=== PATIENT | female | born 1935 | race Two or more races ===

== ENCOUNTER 2017-03-03 19:46 | Inpatient (IN) | payer MEDICARE, OTHER ==
[~2017-03-03] VITALS: Ht 167.6 cm; Wt 68.0 kg
[~2017-03-03 19:46] MED LIST: AMPICILLIN SOD GT; ASPIRIN81 MG ORAL; BACTRIM DS TAB1 EAC1 ORAL; CARDIZEM30 M1 PO; GERI-KOT8.6 MG PO; METFORMIN HCL500 M1 ORAL; MULTI-DELYN237 ML ORAL; PROTONIX40 M2 PO; ROBAXIN500 MG PO; ULTRAM50 MG ORAL
--- NOTE | 2017-03-03 19:52 | Emergency Room Report ---
History of Present Illness General Chief Complaint: Dyspnea/Respdistress Source: EMS Present Illness HPI Patient is an 81-year-old female who presented after increased difficulty breathing. Patient was noted to have prior history of lung disease. She was sent in by her family after having increased trouble breathing. 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 She reportedly had increased productive cough. Patient was noted to have previous. 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 Review of Systems All Other Systems: limited - by mental status Physical Exam Sp02 EP Interpretation: reviewed, normal General Appearance: alert, moderate distress, Chronically Ill Head: atraumatic ENT: normal ENT inspection, hearing grossly normal, normal voice Neck: normal inspection, full range of motion, supple, no bony tend Respiratory: normal inspection, normal breath sounds, rhonchi Cardiovascular #1: regular rate, rhythm, no edema Gastrointestinal: normal inspection, normal bowel sounds, non tender, soft, no guarding, no hernia Genitourinary: no CVA tenderness Musculoskeletal: normal inspection, back normal, normal range of motion Neurologic: responsive, speech normal, motor weakness - left upper extremity Psychiatric: normal inspection, judgement/insight normal, mood/affect normal Skin: normal inspection, normal color, no rash Medical Decision Making Diagnostic Impression: Primary Impression: Sepsis Additional Impressions: UTI (lower urinary tract infection) CHF (congestive heart failure) ER Course Patient presented for shortness of breath. Differential included but was not limited to anemia, pneumonia, pneumothorax, myocardial infarction, pericardial effusion, congestive heart failure, acidosis. Because of complexity of patient' s case laboratory testing and imaging studies were ordered.Laboratory testing showed evidence of elevated BNP as well as hyperkalemia. A chest x-ray one view interpreted by me showed right middle lobe infiltrate. There is no evident effusion. Dr. Mejia was contacted for inpatient management due to complexity of medical condition. Patient his primary care physician Labs Test 03/03/17 19:56 White Blood Count 7.3 K/UL (4.8-10.8) Red Blood Count 4.58 M/UL (4.20-5.40) Hemoglobin 13.3 G/DL (12.0-16.0) Hematocrit 45.1 % (37.0-47.0) Mean Corpuscular Volume 98 FL (80-99) Mean Corpuscular Hemoglobin 29.1 PG (27.0-31.0) Mean Corpuscular Hemoglobin Concent 29.6 G/DL (32.0-36.0) Red Cell Distribution Width 13.7 % (11.6-14.8) Platelet Count 186 K/UL (150-450) Mean Platelet Volume 6.2 FL (6.5-10.1) Neutrophils (%) (Auto) 67.3 % (45.0-75.0) Lymphocytes (%) (Auto) 19.7 % (20.0-45.0) Monocytes (%) (Auto) 8.4 % (1.0-10.0) Eosinophils (%) (Auto) 3.3 % (0.0-3.0) Basophils (%) (Auto) 1.3 % (0.0-2.0) Sodium Level 140 MMOL/L (136-145) Potassium Level 5.0 MMOL/L (3.5-5.1) Chloride Level 107 MMOL/L (98-107) Carbon Dioxide Level 30 MMOL/L (21-32) Anion Gap 3 (5-15) Blood Urea Nitrogen 24 mg/dL (7-18) Creatinine 0.7 MG/DL (0.55-1.30) Estimat Glomerular Filtration Rate mL/min (>60) Glucose Level 98 MG/DL (74-106) Lactic Acid Level 0.80 mmol/L (0.66-2.22) Calcium Level 9.3 MG/DL (8.5-10.1) Total Bilirubin 0.4 MG/DL (0.2-1.0) Aspartate Amino Transf (AST/SGOT) 19 U/L (15-37) Alanine Aminotransferase (ALT/SGPT) 17 U/L (12-78) Alkaline Phosphatase 58 U/L (46-116) Troponin I 0.024 ng/mL (0.000-0.056) Pro-B-Type Natriuretic Peptide 1134 (0-125) Total Protein 7.0 G/DL (6.4-8.2) Albumin 3.4 G/DL (3.4-5.0) Globulin 3.6 g/dL Albumin/Globulin Ratio 0.9 (1.0-2.7) EKG Diagnostic Results Rate: normal Rhythm: NSR ST Segments: no acute changes Status: unchanged Disposition: ADMITTED INPATIENT Condition: Serious Brandon Damon Mar 03, 2017 19:52
[2017-03-03 20:00] VITALS: BP 156/133
[2017-03-03] MEDS ORDERED: Albuterol ud Inhalation HHN ONE (20:00)
[2017-03-03 20:25] LABS: BASOPHILS % (AUTO) 1.3 % (0.0-2.0); EOSINOPHILS % (AUTO) 3.3 % (0.0-3.0); LYMPHOCYTES % (AUTO) 19.7 % (20.0-45.0); MEAN CORPUSCULAR HEMOGLOBIN 29.1 PG (27.0-31.0); MEAN CORPUSCULAR HGB CONC 29.6 G/DL (32.0-36.0); MEAN CORPUSCULAR VOLUME 98 FL (80-99); MEAN PLATELET VOLUME 6.2 FL (6.5-10.1); MONOCYTES % (AUTO) 8.4 % (1.0-10.0); NEUTROPHILS % (AUTO) 67.3 % (45.0-75.0); PLATELET COUNT 186 K/UL (150-450); RED BLOOD COUNT 4.58 M/UL (4.20-5.40); RED CELL DISTRIBUTION WIDTH 13.7 % (11.6-14.8); WHITE BLOOD COUNT 7.3 K/UL (4.8-10.8)
[2017-03-03 21:09] LABS: ALANINE AMINOTRANSFERASE 17 U/L (12-78); ALBUMIN/GLOBULIN RATIO 0.9 (1.0-2.7); ANION GAP 3 (5-15); ASPARTATE AMINO TRANSFERASE 19 U/L (15-37); CALCIUM 9.3 MG/DL (8.5-10.1); CARBON DIOXIDE 30 MMOL/L (21-32); CHLORIDE 107 MMOL/L (98-107); CREATININE 0.7 MG/DL (0.55-1.30); SODIUM 140 MMOL/L (136-145)
[2017-03-03] MEDS ORDERED: LORazepam 0.5mg tab ORAL ONE (21:15)
[2017-03-03 22:07] VITALS: BP 130/71
[2017-03-03] MEDS ORDERED: Nitroglycerin Subl 0.4mg tab SL PRN (22:30)
[2017-03-03] MEDS ORDERED: Promethazine/Codeine 5ml UD ORAL PRN (22:30)
[2017-03-03] MEDS ORDERED: Miralax 17gm pkt ORAL PRN (22:30)
[2017-03-03] MEDS ORDERED: Mylanta II UD 30ml ORAL PRN (22:30)
[2017-03-03] MEDS ORDERED: Albuterol/Ipratropium 3ml neb HHN PRN (22:30)
[2017-03-04] VITALS (7 sets, daily range): BP systolic 109–139; BP diastolic 63–77
[2017-03-04] MEDS ORDERED: UNOBMED (00:42)
[2017-03-04] MEDS ORDERED: Vancomycin 1gm inj IVPB ONE (02:09)
[2017-03-04] MEDS: Vancomycin 1gm in D5W 275ml IVPB SCH ×2 (02:37→15:14)
[2017-03-04] MEDS ORDERED: dilTIAZem HCl 30mg tab ORAL SCH (06:00)
[2017-03-04] MEDS: NovoLOG Insulin Flexpen SUBQ SCH ×4 (06:30→21:00)
[2017-03-04] MEDS ORDERED: ALBUTEROL2.5 MG/3 M INH (06:52)
[2017-03-04 07:15] LABS: BASOPHILS % (AUTO) 1.1 % (0.0-2.0); EOSINOPHILS % (AUTO) 2.9 % (0.0-3.0); LYMPHOCYTES % (AUTO) 15.8 % (20.0-45.0); MEAN CORPUSCULAR HEMOGLOBIN 30.6 PG (27.0-31.0); MEAN CORPUSCULAR HGB CONC 31.6 G/DL (32.0-36.0); MEAN CORPUSCULAR VOLUME 97 FL (80-99); MEAN PLATELET VOLUME 6.1 FL (6.5-10.1); MONOCYTES % (AUTO) 12.3 % (1.0-10.0); NEUTROPHILS % (AUTO) 67.9 % (45.0-75.0); PLATELET COUNT 187 K/UL (150-450); RED CELL DISTRIBUTION WIDTH 13.5 % (11.6-14.8); WHITE BLOOD COUNT 8.2 K/UL (4.8-10.8)
[2017-03-04 08:17] LABS: ANION GAP 3 (5-15); CALCIUM 8.8 MG/DL (8.5-10.1); CARBON DIOXIDE 32 MMOL/L (21-32); CHLORIDE 106 MMOL/L (98-107); CREATININE 0.7 MG/DL (0.55-1.30); POTASSIUM 4.3 MMOL/L (3.5-5.1); SODIUM 140 MMOL/L (136-145)
[2017-03-04] MEDS: Heparin 5000 units/ml inj SUBQ SCH ×2 (08:40→21:24)
[2017-03-04] MEDS ORDERED: Cefepime HCl 1 GM in D5W 55 ML IV SCH (09:00)
--- NOTE | 2017-03-04 12:22 | Diagnostic Imaging Report ---
Indication: SOB Technique: One view of the chest Comparison: 10/16/2014 Findings: The heart is enlarged. Patient is slightly rotated to the left. Mild interstitial prominence likely reflects senescent changes. Previously demonstrated retrocardiac consolidation is no longer evident. There is some atelectasis of the left lateral lung base. There is a left shoulder hemiarthroplasty prosthesis Impression: No definite acute process. Findings as noted
--- NOTE | 2017-03-04 15:36 | History and Physical ---
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 She was sent in by her family after having increased trouble breathing. She reportedly had increased productive cough and received oral abx without any improvement. She was desaturating and admitted for respiratory failure. Allergies: Coded Allergies: No Known Allergies (Unverified , 10/11/14) Medication History Scheduled Pantoprazole Sodium (Protonix), 40 MG PO DAILY, (Reported) Sennosides (Gabi-Josh), 8.6 MG PO QHS, (Reported) Trimethoprim/Sulfamethoxazole 160/800* (Bactrim Ds Tablet*), 1 TAB ORAL TWICE A DAY, (Reported) Scheduled PRN Albuterol Sulfate* (Albuterol Sulfate Hhn*), 3 ML INH Q6H PRN for Shortness of Breath, (Reported) Miscellaneous Medications Unable to Obtain Medications (Unable To Obtain Meds), (Reported) Patient History Healthcare decision maker Resuscitation status Full Code Advanced Directive on File No Past Medical/Surgical History Past Medical/Surgical History: (1) Cerebrovascular accident (CVA) (2) Dementia (3) Hypoalbuminemia Review of Systems All Other Systems: negative except mentioned in HPI Physical Exam General Appearance: WD/WN, no apparent distress Lines, tubes and drains: peripheral, central line HEENT: normocephalic, anicteric Neck: non-tender, normal alignment Cardiovascular/Chest: normal peripheral pulses, normal rate Last 24 Hour Vital Signs Date Time Temp Pulse Resp B/P (MAP) Pulse Ox O2 Delivery O2 Flow Rate FiO2 03/04/17 11:52 97.3 89 20 138/63 94 Simple Mask 03/04/17 09:00 90 03/04/17 08:40 97.9 93 20 139/64 90 Nasal Cannula 3.0 03/04/17 06:00 85 130/75 03/04/17 04:00 97.2 92 20 130/70 92 Room Air 03/04/17 04:00 87 03/04/17 01:42 97.5 93 20 130/77 97 Room Air 03/04/17 00:50 100.2 100 25 109/73 93 Nasal Cannula 3.0 28 03/04/17 00:18 100.2 100 25 109/73 93 Nasal Cannula 3.0 28 03/03/17 22:07 100.2 102 29 130/71 92 Nasal Cannula 2.0 28 03/03/17 20:32 100.2 03/03/17 20:32 94 24 Nasal Cannula 2.0 28 03/03/17 20:12 94 24 100 Nasal Cannula 28 03/03/17 20:00 88 23 Nasal Cannula 2.0 28 03/03/17 20:00 99.0 89 22 156/133 94 Nasal Cannula 2.0 03/03/17 20:00 89 25 94 Nasal Cannula 28 03/03/17 19:40 99.0 92 21 91/53 93 Nasal Cannula 2.0 Intake and Output 03/04/17 03/05/17 19:00 07:00 # Voids 1 # Bowel Movements 1 Laboratory Tests Test 03/03/17 19:56 03/04/17 06:30 White Blood Count 7.3 K/UL (4.8-10.8) 8.2 K/UL (4.8-10.8) Red Blood Count 4.58 M/UL (4.20-5.40) 4.50 M/UL (4.20-5.40) Hemoglobin 13.3 G/DL (12.0-16.0) 13.8 G/DL (12.0-16.0) Hematocrit 45.1 % (37.0-47.0) 43.6 % (37.0-47.0) Mean Corpuscular Volume 98 FL (80-99) 97 FL (80-99) Mean Corpuscular Hemoglobin 29.1 PG (27.0-31.0) 30.6 PG (27.0-31.0) Mean Corpuscular Hemoglobin Concent 29.6 G/DL (32.0-36.0) L 31.6 G/DL (32.0-36.0) L Red Cell Distribution Width 13.7 % (11.6-14.8) 13.5 % (11.6-14.8) Platelet Count 186 K/UL (150-450) 187 K/UL (150-450) Mean Platelet Volume 6.2 FL (6.5-10.1) L 6.1 FL (6.5-10.1) L Neutrophils (%) (Auto) 67.3 % (45.0-75.0) 67.9 % (45.0-75.0) Lymphocytes (%) (Auto) 19.7 % (20.0-45.0) L 15.8 % (20.0-45.0) L Monocytes (%) (Auto) 8.4 % (1.0-10.0) 12.3 % (1.0-10.0) H Eosinophils (%) (Auto) 3.3 % (0.0-3.0) H 2.9 % (0.0-3.0) Basophils (%) (Auto) 1.3 % (0.0-2.0) 1.1 % (0.0-2.0) Sodium Level 140 MMOL/L (136-145) 140 MMOL/L (136-145) Potassium Level 5.0 MMOL/L (3.5-5.1) 4.3 MMOL/L (3.5-5.1) Chloride Level 107 MMOL/L (98-107) 106 MMOL/L (98-107) Carbon Dioxide Level 30 MMOL/L (21-32) 32 MMOL/L (21-32) Anion Gap 3 (5-15) L 3 (5-15) L Blood Urea Nitrogen 24 mg/dL (7-18) H 21 mg/dL (7-18) H Creatinine 0.7 MG/DL (0.55-1.30) 0.7 MG/DL (0.55-1.30) Estimat Glomerular Filtration Rate mL/min (>60) mL/min (>60) Glucose Level 98 MG/DL (74-106) 90 MG/DL (74-106) Lactic Acid Level 0.80 mmol/L (0.66-2.22) Calcium Level 9.3 MG/DL (8.5-10.1) 8.8 MG/DL (8.5-10.1) Total Bilirubin 0.4 MG/DL (0.2-1.0) Aspartate Amino Transf (AST/SGOT) 19 U/L (15-37) Alanine Aminotransferase (ALT/SGPT) 17 U/L (12-78) Alkaline Phosphatase 58 U/L (46-116) Troponin I 0.024 ng/mL (0.000-0.056) Pro-B-Type Natriuretic Peptide 1134 (0-125) H Total Protein 7.0 G/DL (6.4-8.2) Albumin 3.4 G/DL (3.4-5.0) 3.1 G/DL (3.4-5.0) L Globulin 3.6 g/dL Albumin/Globulin Ratio 0.9 (1.0-2.7) L Phosphorus Level 4.0 MG/DL (2.5-4.9) Height (Feet): 5 Height (Inches): 6.00 Weight (Pounds): 150 Medications Current Medications Medications (Trade) Dose Ordered Sig/Freeman Route PRN Reason Start Time Stop Time Status Last Admin Dose Admin Acetaminophen (Tylenol) 650 mg Q4H PRN ORAL fever 03/03/17 22:30 04/02/17 22:29 Al Hydroxide/Mg Hydroxide (Mylanta II) 30 ml Q6H PRN ORAL dyspepsia 03/03/17 22:30 04/02/17 22:29 Albuterol/ Ipratropium (DuoNeb 0.5-3(2.5)mg/3ml) 3 ml EVERY 4 HOURS PRN HHN Shortness of Breath 03/03/17 22:30 03/08/17 22:29 Cefepime HCl 1 gm/ Dextrose 55 ml @ 110 mls/hr EVERY 12 HOURS IV 03/04/17 09:00 03/11/17 08:59 03/04/17 08:33 Dextrose (Dextrose 50%) STAT PRN IV Hypoglycemia 03/03/17 22:30 04/02/17 22:29 Heparin Sodium (Porcine) (Heparin 5000 units/ml) 5,000 units EVERY 12 HOURS SUBQ 03/04/17 09:00 04/03/17 08:59 03/04/17 08:40 Insulin Aspart (NovoLOG) BEFORE MEALS AND HS SUBQ 03/04/17 06:30 04/03/17 06:29 Nitroglycerin (Ntg) 0.4 mg Q5M PRN SL Prn Chest Pain 03/03/17 22:30 04/02/17 22:29 Ondansetron HCl (Zofran) 4 mg Q6H PRN IVP Nausea & Vomiting 03/03/17 22:30 04/02/17 22:29 Polyethylene Glycol (Miralax) 17 gm DAILYPRN PRN ORAL Constipation 03/03/17 22:30 04/02/17 22:29 Promethazine HCl/ Codeine (Phenergan with Codeine) 5 ml Q4H PRN ORAL For Cough 03/03/17 22:30 04/02/17 22:29 Temazepam (Restoril) 15 mg HSPRN PRN ORAL Insomnia 03/03/17 22:30 03/10/17 22:29 Vancomycin HCl (Vanco rx to dose) 1 ea DAILY PRN MISC Per rx protocol 03/03/17 22:30 04/02/17 22:29 Vancomycin HCl 1 gm/Dextrose 275 ml @ 183.708 mls/hr Q12H IVPB 03/04/17 01:00 03/09/17 00:59 03/04/17 15:14 Assessment/Plan Problem List: (1) Respiratory distress ICD Codes: R06.00 - Dyspnea, unspecified SNOMED: 389667577 (2) Dyspnea ICD Codes: R06.00 - Dyspnea, unspecified SNOMED: 801165116 (3) UTI (lower urinary tract infection) ICD Codes: N39.0 - Urinary tract infection, site not specified SNOMED: 9134336 (4) Sepsis ICD Codes: A41.9 - Sepsis, unspecified organism SNOMED: 21590175 Assessment/Plan iv abx check cultures respiratory treatment titrate fio2 aspiration precaution swallow study. DOMINIK CROW Mar 04, 2017 15:36
--- NOTE | 2017-03-04 16:34 | Consultation ---
History of Present Illness General Date patient seen: Mar 04, 2017 Time patient seen: 17:37 Chief Complaint: Dyspnea/Respdistress Reason for Consultation: low grade fever Present Illness HPI 81 y/o F with hx of HTN, COPD, DM2, cardiac arrest, CVA, with left side weakness and left sdie facial droop, Dementia presented to ED on 03/03 with worsening SOB, fever and productive cough. NOticed to have low grade fever Tm 100.2, afebrile now in 12hrs. no leukocytosis. CXR neg for PNA Started on IV Vanco and Cefepime. Allergies: Coded Allergies: No Known Allergies (Unverified , 10/11/14) Medication History Scheduled Pantoprazole Sodium (Protonix), 40 MG PO DAILY, (Reported) Sennosides (Gabi-Josh), 8.6 MG PO QHS, (Reported) Trimethoprim/Sulfamethoxazole 160/800* (Bactrim Ds Tablet*), 1 TAB ORAL TWICE A DAY, (Reported) Scheduled PRN Albuterol Sulfate* (Albuterol Sulfate Hhn*), 3 ML INH Q6H PRN for Shortness of Breath, (Reported) Miscellaneous Medications Unable to Obtain Medications (Unable To Obtain Meds), (Reported) Patient History Healthcare decision maker Resuscitation status Full Code Advanced Directive on File No Patient History Narrative PMHx: as above SH:unable to obtain given dementia Fhx: non contributory Review of Systems ROS Narrative unable to obtain given dementia Physical Exam Physical Exam Narrative General Appearance: alert, non in distress, Chronically Ill HEENT: no oral lessions, PERRL Neck: supple Respiratory: normal inspection, normal breath sounds, CTA x2 Cardiovascular: regular rate, rhythm, no edema Gastrointestinal: normal inspection, normal bowel sounds, non tender, soft, no guarding, no hernia Musculoskeletal: normal inspection, back normal, normal range of motion Neurologic: responsive, speech normal, motor weakness - left upper extremity Skin: normal inspection, normal color, no rash Last 24 Hour Vital Signs Date Time Temp Pulse Resp B/P (MAP) Pulse Ox O2 Delivery O2 Flow Rate FiO2 03/04/17 16:00 97.1 92 20 134/71 90 Nasal Cannula 6.0 03/04/17 11:52 97.3 89 20 138/63 94 Simple Mask 03/04/17 09:00 90 03/04/17 08:40 97.9 93 20 139/64 90 Nasal Cannula 3.0 03/04/17 06:00 85 130/75 03/04/17 04:00 97.2 92 20 130/70 92 Room Air 03/04/17 04:00 87 03/04/17 01:42 97.5 93 20 130/77 97 Room Air 03/04/17 00:50 100.2 100 25 109/73 93 Nasal Cannula 3.0 28 03/04/17 00:18 100.2 100 25 109/73 93 Nasal Cannula 3.0 28 03/03/17 22:07 100.2 102 29 130/71 92 Nasal Cannula 2.0 28 03/03/17 20:32 100.2 03/03/17 20:32 94 24 Nasal Cannula 2.0 28 03/03/17 20:12 94 24 100 Nasal Cannula 28 03/03/17 20:00 88 23 Nasal Cannula 2.0 28 03/03/17 20:00 99.0 89 22 156/133 94 Nasal Cannula 2.0 03/03/17 20:00 89 25 94 Nasal Cannula 28 03/03/17 19:40 99.0 92 21 91/53 93 Nasal Cannula 2.0 Intake and Output 03/04/17 03/05/17 19:00 07:00 # Voids 1 # Bowel Movements 1 Laboratory Tests Test 03/03/17 19:56 03/04/17 06:30 White Blood Count 7.3 K/UL (4.8-10.8) 8.2 K/UL (4.8-10.8) Red Blood Count 4.58 M/UL (4.20-5.40) 4.50 M/UL (4.20-5.40) Hemoglobin 13.3 G/DL (12.0-16.0) 13.8 G/DL (12.0-16.0) Hematocrit 45.1 % (37.0-47.0) 43.6 % (37.0-47.0) Mean Corpuscular Volume 98 FL (80-99) 97 FL (80-99) Mean Corpuscular Hemoglobin 29.1 PG (27.0-31.0) 30.6 PG (27.0-31.0) Mean Corpuscular Hemoglobin Concent 29.6 G/DL (32.0-36.0) L 31.6 G/DL (32.0-36.0) L Red Cell Distribution Width 13.7 % (11.6-14.8) 13.5 % (11.6-14.8) Platelet Count 186 K/UL (150-450) 187 K/UL (150-450) Mean Platelet Volume 6.2 FL (6.5-10.1) L 6.1 FL (6.5-10.1) L Neutrophils (%) (Auto) 67.3 % (45.0-75.0) 67.9 % (45.0-75.0) Lymphocytes (%) (Auto) 19.7 % (20.0-45.0) L 15.8 % (20.0-45.0) L Monocytes (%) (Auto) 8.4 % (1.0-10.0) 12.3 % (1.0-10.0) H Eosinophils (%) (Auto) 3.3 % (0.0-3.0) H 2.9 % (0.0-3.0) Basophils (%) (Auto) 1.3 % (0.0-2.0) 1.1 % (0.0-2.0) Sodium Level 140 MMOL/L (136-145) 140 MMOL/L (136-145) Potassium Level 5.0 MMOL/L (3.5-5.1) 4.3 MMOL/L (3.5-5.1) Chloride Level 107 MMOL/L (98-107) 106 MMOL/L (98-107) Carbon Dioxide Level 30 MMOL/L (21-32) 32 MMOL/L (21-32) Anion Gap 3 (5-15) L 3 (5-15) L Blood Urea Nitrogen 24 mg/dL (7-18) H 21 mg/dL (7-18) H Creatinine 0.7 MG/DL (0.55-1.30) 0.7 MG/DL (0.55-1.30) Estimat Glomerular Filtration Rate mL/min (>60) mL/min (>60) Glucose Level 98 MG/DL (74-106) 90 MG/DL (74-106) Lactic Acid Level 0.80 mmol/L (0.66-2.22) Calcium Level 9.3 MG/DL (8.5-10.1) 8.8 MG/DL (8.5-10.1) Total Bilirubin 0.4 MG/DL (0.2-1.0) Aspartate Amino Transf (AST/SGOT) 19 U/L (15-37) Alanine Aminotransferase (ALT/SGPT) 17 U/L (12-78) Alkaline Phosphatase 58 U/L (46-116) Troponin I 0.024 ng/mL (0.000-0.056) Pro-B-Type Natriuretic Peptide 1134 (0-125) H Total Protein 7.0 G/DL (6.4-8.2) Albumin 3.4 G/DL (3.4-5.0) 3.1 G/DL (3.4-5.0) L Globulin 3.6 g/dL Albumin/Globulin Ratio 0.9 (1.0-2.7) L Phosphorus Level 4.0 MG/DL (2.5-4.9) reviewed Height (Feet): 5 Height (Inches): 6.00 Weight (Pounds): 150 Medications Current Medications Medications (Trade) Dose Ordered Sig/Freeman Route PRN Reason Start Time Stop Time Status Last Admin Dose Admin Acetaminophen (Tylenol) 650 mg Q4H PRN ORAL fever 03/03/17 22:30 04/02/17 22:29 Al Hydroxide/Mg Hydroxide (Mylanta II) 30 ml Q6H PRN ORAL dyspepsia 03/03/17 22:30 04/02/17 22:29 Albuterol/ Ipratropium (DuoNeb 0.5-3(2.5)mg/3ml) 3 ml EVERY 4 HOURS PRN HHN Shortness of Breath 03/03/17 22:30 03/08/17 22:29 Cefepime HCl 1 gm/ Dextrose 55 ml @ 110 mls/hr EVERY 12 HOURS IV 03/04/17 09:00 03/11/17 08:59 03/04/17 08:33 Dextrose (Dextrose 50%) STAT PRN IV Hypoglycemia 03/03/17 22:30 04/02/17 22:29 Heparin Sodium (Porcine) (Heparin 5000 units/ml) 5,000 units EVERY 12 HOURS SUBQ 03/04/17 09:00 04/03/17 08:59 03/04/17 08:40 Insulin Aspart (NovoLOG) BEFORE MEALS AND HS SUBQ 03/04/17 06:30 04/03/17 06:29 Nitroglycerin (Ntg) 0.4 mg Q5M PRN SL Prn Chest Pain 03/03/17 22:30 04/02/17 22:29 Ondansetron HCl (Zofran) 4 mg Q6H PRN IVP Nausea & Vomiting 03/03/17 22:30 04/02/17 22:29 Polyethylene Glycol (Miralax) 17 gm DAILYPRN PRN ORAL Constipation 03/03/17 22:30 04/02/17 22:29 Promethazine HCl/ Codeine (Phenergan with Codeine) 5 ml Q4H PRN ORAL For Cough 03/03/17 22:30 04/02/17 22:29 Temazepam (Restoril) 15 mg HSPRN PRN ORAL Insomnia 03/03/17 22:30 03/10/17 22:29 Vancomycin HCl (Vanco rx to dose) 1 ea DAILY PRN MISC Per rx protocol 03/03/17 22:30 04/02/17 22:29 Vancomycin HCl 1 gm/Dextrose 275 ml @ 183.708 mls/hr Q12H IVPB 03/04/17 01:00 03/09/17 00:59 03/04/17 15:14 Assessment/Plan Assessment/Plan Abx: IV Vancomcyin 03/03- IV Cefepime 03/04- Assesment: SOB- no PNA on CXR -CXR:. Mild interstitial prominence likely reflects senescent changes. Previously demonstrated retrocardiac consolidation is no longer evident. There is some atelectasis of the left lateral lung base. There is a left shoulder hemiarthroplasty prosthesis Low grade fever-? bronchitis- r/o UTI (cannot provide hx), r/o Flu, ?aspiration pneumonitis No leukocytosis HTN, COPD, DM2, cardiac arrest, CVA, with left side weakness and left sdie facial droop, Dementia Plan: -Transition IV Vanco and Cefepime to Ceftriaxone pending Repeat CXR and u/a -obtain u/a with reflex, CXR 2v savanna am, Influenza a/b test -f/u cx -Monitor CBC/BMP, temperatures Thank you for this consultation. Will continue to follow along with you. Discussed with Amanda Chaparro.D. Mar 04, 2017 16:34
[2017-03-04] MEDS ORDERED: Tubing IV Secondary IV ONE (17:40)
[2017-03-04] MEDS ORDERED: D5W 275ml ONE (17:40)
[2017-03-04] MEDS ORDERED: NS 275ml ONE (17:40)
[2017-03-04] MEDS ORDERED: cefTRIAXone 1 GM in D5W 55 ML IVPB SCH (21:00)
--- NOTE | 2017-03-04 22:58 | Cardiology Report ---
APPROVED REPORT EKG Measurement Heart [id number] Normal sinus rhythm Possible Left atrial enlargement Left axis deviation Left ventricular hypertrophy Cannot rule out Septal infarct, age undetermined Abnormal ECG
[2017-03-05] VITALS (7 sets, daily range): BP systolic 104–152; BP diastolic 51–91
[2017-03-05] MEDS: NovoLOG Insulin Flexpen SUBQ SCH ×4 (06:18→21:00)
[2017-03-05 08:07] LABS: APPEARANCE,URINE CLOUDY; KETONES,URINE 2+ (NEGATIVE); LEUKOCYTE ESTERASE ,URINE 2+ (NEGATIVE); NITRITE,URINE NEGATIVE (NEGATIVE); PH,URINE 6 (4.5-8.0); PROTEIN,URINE 3+ (NEGATIVE); UROBILINOGEN,URINE NORMAL MG/DL (0.0-1.0)
[2017-03-05 08:27] LABS: RBC,URINE TNTC /HPF (0 - 2); SQUAMOUS EPITHELIAL CELL,UR MODERATE /LPF (NONE/OCC); WBC,URINE 60-80 /HPF (0 - 2)
[2017-03-05 08:28] LABS: BACTERIA,URINE MODERATE /HPF
--- NOTE | 2017-03-05 08:44 | Wound Care Consultation ---
Wound Assessment Wound Assessment #1: Wound Number: 1 Wound Present on Admission: Yes New Wound: No Status Change of Wound: No Wound Location Body Site Modif: left Wound Location Body Site: buttocks Wound Type: pressure ulcer Dionne Test: Does not Dionne Pressure Ulcer Stage: Deep Tissue Injury Wound Thickness: Full Thickness Wound Length: 4.0 Wound Width: 4.0 Wound Depth: utd Percent of Wound Purple/Maroon: 100 Wound Drainage Amount: None Wound Drainage Odor: None/Absent Tissue Surrounding Wound: Intact Wound General Appearance: Reddened - purple Wound Assessment #2: Wound Number: 2 Wound Present on Admission: Yes New Wound: No Status Change of Wound: No Wound Location Body Site Modif: left, right Wound Location Body Site: axilla Wound Type: other - intertrigo Dionne Test: Does not Dionne Wound Thickness: Partial Thickness Percent of Wound Holliday/Red: 100 Wound Drainage Amount: None Wound Drainage Odor: None/Absent Tissue Surrounding Wound: Erythemic Wound General Appearance: Reddened Wound Assessment #3: Wound Number: 3 Wound Present on Admission: Yes New Wound: No Status Change of Wound: No Wound Location Body Site Modif: left, right Wound Location Body Site: breast fold Wound Type: other - intertrigo Dionne Test: Does not Dionne Wound Thickness: Partial Thickness Percent of Wound Holliday/Red: 100 Wound Drainage Amount: None Wound Drainage Odor: None/Absent Tissue Surrounding Wound: Intact Wound General Appearance: Reddened Wound Assessment #4: Wound Number: 4 Wound Present on Admission: Yes New Wound: No Status Change of Wound: No Wound Location Body Site: perineal area Wound Type: chemical burn Dionne Test: Does not Dionne Percent of Wound Holliday/Red: 100 Wound Drainage Amount: None Wound Drainage Odor: None/Absent Tissue Surrounding Wound: Erythemic Wound General Appearance: Reddened Wound Comment #1 Left buttock DTI pressure ulcer #2 Left and right armpit intertrigo #3 Left and right breast fold intertrigo #4 Chemical burn on perineal area Recommendation -Local wound care per protocol -Keep clean and dry -Turn and reposition -Optimize nutrition -Offload both heels -Heel protector on both heels -Assess and f/u accordingly for any changes CARLOS SIMMONS RN Mar 05, 2017 08:44
[2017-03-05] MEDS: Heparin 5000 units/ml inj SUBQ SCH ×2 (09:56→23:34)
[2017-03-05] MEDS ORDERED: Nystatin Powder 100,000 units/gm 15gm TOPIC SCH (13:00)
--- NOTE | 2017-03-05 14:18 | Diagnostic Imaging Report ---
Indication: Dyspnea Comparison: 03/03/17 A single view chest radiograph was obtained. Findings: Bones are osteopenic. The heart is borderline enlarged. The lungs are clear. Impression: Stable appearance. No acute findings
--- NOTE | 2017-03-05 14:37 | Pulmonology Progress Note ---
Assessment/Plan Problems: (1) Respiratory distress (2) Dyspnea (3) UTI (lower urinary tract infection) (4) Sepsis Assessment/Plan becoming afebrile check urine cultures repeat cxr, the same med/surg f/u video swallow study. Subjective ROS Limited/Unobtainable: No Interval Events: awake. looks comfortable Allergies: Coded Allergies: No Known Allergies (Unverified , 10/11/14) Objective Last 24 Hour Vital Signs Date Time Temp Pulse Resp B/P (MAP) Pulse Ox O2 Delivery O2 Flow Rate FiO2 03/05/17 11:40 Nasal Cannula 2.0 91 03/05/17 11:31 98.4 81 20 131/73 Nasal Cannula 03/05/17 08:41 98.1 93 20 144/78 96 Nasal Cannula 3.0 03/05/17 08:18 96 Nasal Cannula 2.0 28 03/05/17 08:18 Nasal Cannula 2.0 28 03/05/17 08:00 88 03/05/17 04:37 99.0 103 20 152/91 96 Room Air 03/05/17 04:00 98 03/05/17 00:19 97.0 86 20 139/51 94 Nasal Cannula 2.0 03/05/17 00:00 93 03/04/17 21:00 97.5 93 20 130/77 97 Room Air 03/04/17 20:00 85 03/04/17 16:00 97.1 92 20 134/71 90 Nasal Cannula 6.0 03/04/17 16:00 89 Intake and Output 03/05/17 03/06/17 19:00 07:00 Intake Total 480 ml Balance 480 ml Intake Oral 480 ml # Voids 1 # Bowel Movements 1 General Appearance: WD/WN HEENT: normocephalic, atraumatic Respiratory/Chest: chest wall non-tender, lungs clear Cardiovascular: normal peripheral pulses, normal rate Abdomen: normal bowel sounds, no organomegaly Genitourinary: normal external genitalia Extremities: no clubbing Skin: no rash Microbiology Date/Time Source Procedure Growth Status 03/03/17 19:56 Blood Blood Culture - Preliminary NO GROWTH AFTER 24 HOURS Resulted 03/03/17 19:40 Blood Blood Culture - Preliminary NO GROWTH AFTER 24 HOURS Resulted Laboratory Tests 03/05/17 04:30: Urine Color Pale yellow, Urine Appearance Cloudy, Urine pH 6, Urine Specific [place] 1.015, Urine Protein 3+H, Urine Glucose (UA) Negative, Urine Ketones 2+H , Urine Occult Blood 5+H, Urine Nitrite Negative, Urine Bilirubin Negative, Urine Urobilinogen Normal, Urine Leukocyte Esterase 2+H, Urine RBC TntcH, Urine WBC 60-80H, Urine Squamous Epithelial Cells ModerateH, Urine Bacteria ModerateH Current Medications Medications (Trade) Dose Ordered Sig/Freeman Route PRN Reason Start Time Stop Time Status Last Admin Dose Admin Acetaminophen (Tylenol) 650 mg Q4H PRN ORAL fever 03/03/17 22:30 04/02/17 22:29 Al Hydroxide/Mg Hydroxide (Mylanta II) 30 ml Q6H PRN ORAL dyspepsia 03/03/17 22:30 04/02/17 22:29 Albuterol/ Ipratropium (DuoNeb 0.5-3(2.5)mg/3ml) 3 ml EVERY 4 HOURS PRN HHN Shortness of Breath 03/03/17 22:30 03/08/17 22:29 Ceftriaxone Sodium 1 gm/ Dextrose 55 ml @ 110 mls/hr Q24H IVPB 03/04/17 21:00 03/11/17 20:59 03/04/17 21:22 Dextrose (Dextrose 50%) STAT PRN IV Hypoglycemia 03/03/17 22:30 04/02/17 22:29 Heparin Sodium (Porcine) (Heparin 5000 units/ml) 5,000 units EVERY 12 HOURS SUBQ 03/04/17 09:00 04/03/17 08:59 03/05/17 09:56 Insulin Aspart (NovoLOG) BEFORE MEALS AND HS SUBQ 03/04/17 06:30 04/03/17 06:29 Nitroglycerin (Ntg) 0.4 mg Q5M PRN SL Prn Chest Pain 03/03/17 22:30 04/02/17 22:29 Nystatin (Nystop Powder) 1 applic THREE TIMES A DAY TOPIC 03/05/17 13:00 04/04/17 12:59 03/05/17 12:40 Ondansetron HCl (Zofran) 4 mg Q6H PRN IVP Nausea & Vomiting 03/03/17 22:30 04/02/17 22:29 Polyethylene Glycol (Miralax) 17 gm DAILYPRN PRN ORAL Constipation 03/03/17 22:30 04/02/17 22:29 Promethazine HCl/ Codeine (Phenergan with Codeine) 5 ml Q4H PRN ORAL For Cough 03/03/17 22:30 04/02/17 22:29 Temazepam (Restoril) 15 mg HSPRN PRN ORAL Insomnia 03/03/17 22:30 03/10/17 22:29 Vancomycin HCl (Vanco rx to dose) 1 ea DAILY PRN MISC Per rx protocol 03/03/17 22:30 04/02/17 22:29 DOMINIK CROW Mar 05, 2017 14:37
--- NOTE | 2017-03-05 15:45 | Infectious Diseases Prog Note ---
Assessment/Plan Assessment/Plan Abx: IV Vancomcyin 03/03-03/04 IV Cefepime 03/04 IV Ceftriaxone 03/04- Assesment: SOB- no PNA on CXR -CXR 03/05: Stable appearance. No acute findings -CXR:. Mild interstitial prominence likely reflects senescent changes. Previously demonstrated retrocardiac consolidation is no longer evident. There is some atelectasis of the left lateral lung base. 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 bronchitis- r/o UTI (cannot provide hx), r/o Flu, ? 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 Will continue to follow along with you. Discussed with RN. Subjective Allergies: Coded Allergies: No Known Allergies (Unverified , 10/11/14) Subjective afebrile on 2l NC no leukocytosis awaiting UCx Objective Vital Signs Last 24 Hour Vital Signs Date Time Temp Pulse Resp B/P (MAP) Pulse Ox O2 Delivery O2 Flow Rate FiO2 03/05/17 15:38 97.1 86 20 129/66 Nasal Cannula 2.0 03/05/17 12:00 83 03/05/17 11:40 Nasal Cannula 2.0 91 03/05/17 11:31 98.4 81 20 131/73 Nasal Cannula 03/05/17 08:41 98.1 93 20 144/78 96 Nasal Cannula 3.0 03/05/17 08:18 96 Nasal Cannula 2.0 28 03/05/17 08:18 Nasal Cannula 2.0 28 03/05/17 08:00 88 03/05/17 04:37 99.0 103 20 152/91 96 Room Air 03/05/17 04:00 98 03/05/17 00:19 97.0 86 20 139/51 94 Nasal Cannula 2.0 03/05/17 00:00 93 03/04/17 21:00 97.5 93 20 130/77 97 Room Air 03/04/17 20:00 85 03/04/17 16:00 97.1 92 20 134/71 90 Nasal Cannula 6.0 03/04/17 16:00 89 Height (Feet): 5 Height (Inches): 6.00 Weight (Pounds): 150 Objective General Appearance: alert, non in distress, Chronically Ill HEENT: no oral lessions, PERRL Neck: supple Respiratory: normal inspection, normal breath sounds, CTA x2 Cardiovascular: regular rate, rhythm, no edema Gastrointestinal: normal inspection, normal bowel sounds, non tender, soft, no guarding, no hernia Musculoskeletal: normal inspection, back normal, normal range of motion Neurologic: responsive, speech normal, motor weakness - left upper extremity Skin: normal inspection, normal color, no rash Microbiology Date/Time Source Procedure Growth Status 03/03/17 19:56 Blood Blood Culture - Preliminary NO GROWTH AFTER 24 HOURS Resulted 03/03/17 19:40 Blood Blood Culture - Preliminary NO GROWTH AFTER 24 HOURS Resulted Laboratory Tests Test 03/05/17 04:30 Urine Color Pale yellow Urine Appearance Cloudy Urine pH 6 (4.5-8.0) Urine Specific [place] 1.015 (1.005-1.035) Urine Protein 3+ (NEGATIVE) H Urine Glucose (UA) Negative (NEGATIVE) Urine Ketones 2+ (NEGATIVE) H Urine Occult Blood 5+ (NEGATIVE) H Urine Nitrite Negative (NEGATIVE) Urine Bilirubin Negative (NEGATIVE) Urine Urobilinogen Normal MG/DL (0.0-1.0) Urine Leukocyte Esterase 2+ (NEGATIVE) H Urine RBC Tntc /HPF (0 - 2) H Urine WBC 60-80 /HPF (0 - 2) H Urine Squamous Epithelial Cells Moderate /LPF (NONE/OCC) H Urine Bacteria Moderate /HPF (NONE) H Current Medications Medications (Trade) Dose Ordered Sig/Freeman Route PRN Reason Start Time Stop Time Status Last Admin Dose Admin Acetaminophen (Tylenol) 650 mg Q4H PRN ORAL fever 03/03/17 22:30 04/02/17 22:29 Al Hydroxide/Mg Hydroxide (Mylanta II) 30 ml Q6H PRN ORAL dyspepsia 03/03/17 22:30 04/02/17 22:29 Albuterol/ Ipratropium (DuoNeb 0.5-3(2.5)mg/3ml) 3 ml EVERY 4 HOURS PRN HHN Shortness of Breath 03/03/17 22:30 03/08/17 22:29 Ceftriaxone Sodium 1 gm/ Dextrose 55 ml @ 110 mls/hr Q24H IVPB 03/04/17 21:00 03/11/17 20:59 03/04/17 21:22 Dextrose (Dextrose 50%) STAT PRN IV Hypoglycemia 03/03/17 22:30 04/02/17 22:29 Heparin Sodium (Porcine) (Heparin 5000 units/ml) 5,000 units EVERY 12 HOURS SUBQ 03/04/17 09:00 04/03/17 08:59 03/05/17 09:56 Insulin Aspart (NovoLOG) BEFORE MEALS AND HS SUBQ 03/04/17 06:30 04/03/17 06:29 Nitroglycerin (Ntg) 0.4 mg Q5M PRN SL Prn Chest Pain 03/03/17 22:30 04/02/17 22:29 Nystatin (Nystop Powder) 1 applic THREE TIMES A DAY TOPIC 03/05/17 13:00 04/04/17 12:59 03/05/17 12:40 Ondansetron HCl (Zofran) 4 mg Q6H PRN IVP Nausea & Vomiting 03/03/17 22:30 04/02/17 22:29 Polyethylene Glycol (Miralax) 17 gm DAILYPRN PRN ORAL Constipation 03/03/17 22:30 04/02/17 22:29 Promethazine HCl/ Codeine (Phenergan with Codeine) 5 ml Q4H PRN ORAL For Cough 03/03/17 22:30 04/02/17 22:29 Temazepam (Restoril) 15 mg HSPRN PRN ORAL Insomnia 03/03/17 22:30 03/10/17 22:29 Vancomycin HCl (Vanco rx to dose) 1 ea DAILY PRN MISC Per rx protocol 03/03/17 22:30 04/02/17 22:29 Amanda Elizondo M.D. Mar 05, 2017 15:45
[2017-03-05] MEDS ORDERED: Mylanta II UD 30ml ORAL PRN (18:00)
[2017-03-05] MEDS ORDERED: Promethazine/Codeine 5ml UD ORAL PRN (18:00)
[2017-03-05] MEDS ORDERED: Miralax 17gm pkt ORAL PRN (18:00)
[2017-03-05] MEDS ORDERED: Nitroglycerin Subl 0.4mg tab SL PRN (18:00)
[2017-03-05] MEDS ORDERED: Albuterol/Ipratropium 3ml neb HHN PRN (21:00)
[2017-03-05] MEDS: Nystatin Powder 100,000 units/gm 15gm TOPIC SCH (23:29)
[2017-03-05] MEDS: cefTRIAXone 1 GM in D5W 55 ML IVPB SCH (23:30)
[2017-03-06 04:15] VITALS: BP 143/82
[2017-03-06] MEDS: NovoLOG Insulin Flexpen SUBQ SCH ×4 (06:10→21:00)
[2017-03-06 08:12] VITALS: BP 130/71
[2017-03-06 08:50] LABS: EOSINOPHILS % (AUTO) 2.8 % (0.0-3.0); LYMPHOCYTES % (AUTO) 16.1 % (20.0-45.0); MEAN CORPUSCULAR HEMOGLOBIN 30.2 PG (27.0-31.0); MEAN CORPUSCULAR HGB CONC 31.7 G/DL (32.0-36.0); MEAN CORPUSCULAR VOLUME 95 FL (80-99); MEAN PLATELET VOLUME 5.9 FL (6.5-10.1); MONOCYTES % (AUTO) 9.6 % (1.0-10.0); NEUTROPHILS % (AUTO) 70.5 % (45.0-75.0); PLATELET COUNT 193 K/UL (150-450); RED BLOOD COUNT 4.93 M/UL (4.20-5.40); RED CELL DISTRIBUTION WIDTH 13.1 % (11.6-14.8); WHITE BLOOD COUNT 7.3 K/UL (4.8-10.8)
[2017-03-06] MEDS: Heparin 5000 units/ml inj SUBQ SCH ×2 (09:05→22:17)
[2017-03-06] MEDS: Nystatin Powder 100,000 units/gm 15gm TOPIC SCH ×3 (09:05→18:06)
[2017-03-06 09:09] LABS: ALANINE AMINOTRANSFERASE 12 U/L (12-78); ALBUMIN/GLOBULIN RATIO 0.9 (1.0-2.7); ANION GAP 4 (5-15); ASPARTATE AMINO TRANSFERASE 22 U/L (15-37); CALCIUM 9.2 MG/DL (8.5-10.1); CARBON DIOXIDE 32 MMOL/L (21-32); CHLORIDE 101 MMOL/L (98-107); CREATININE 0.6 MG/DL (0.55-1.30); CRP QUANT 1.1 mg/dL (0.00-0.90); MAGNESIUM 1.8 MG/DL (1.8-2.4); PHOSPHORUS 3.2 MG/DL (2.5-4.9); POTASSIUM 4.1 MMOL/L (3.5-5.1); SODIUM 136 MMOL/L (136-145); TOTAL PROTEIN 6.9 G/DL (6.4-8.2)
[2017-03-06 10:09] LABS: ERYTHROCYTE SEDIMENTATION RATE 19 MM/HR (0-30)
--- NOTE | 2017-03-06 10:38 | Infectious Diseases Prog Note ---
Assessment/Plan Assessment/Plan Abx: IV Vancomcyin 03/03-03/04 IV Cefepime 03/04 IV Ceftriaxone 03/04- Assesment: SOB- no PNA on CXR -CXR 03/05: Stable appearance. No acute findings -CXR:. Mild interstitial prominence likely reflects senescent changes. Previously demonstrated retrocardiac consolidation is no longer evident. There is some atelectasis of the left lateral lung base. 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 bronchitis- r/o UTI (cannot provide hx), r/o Flu, ? 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 Will continue to follow along with you. Discussed with RN. Subjective Allergies: Coded Allergies: No Known Allergies (Unverified , 10/11/14) Subjective afebrile on 2l NC no leukocytosis awaiting UCx Objective Vital Signs Last 24 Hour Vital Signs Date Time Temp Pulse Resp B/P (MAP) Pulse Ox O2 Delivery O2 Flow Rate FiO2 03/06/17 08:47 Nasal Cannula 2.0 03/06/17 08:47 94 Nasal Cannula 2.0 03/06/17 08:12 97.2 93 20 130/71 90 Room Air 03/06/17 04:15 97.1 89 20 143/82 96 Room Air 89 03/06/17 02:17 Nasal Cannula 2.0 03/06/17 02:17 96 Nasal Cannula 2.0 03/05/17 23:35 97.0 88 20 126/70 96 Room Air 88 03/05/17 19:20 96 Nasal Cannula 2.0 03/05/17 19:20 Nasal Cannula 2.0 03/05/17 19:20 97.1 102 20 104/70 98 Nasal Cannula 102 03/05/17 16:00 90 03/05/17 15:38 97.1 86 20 129/66 Nasal Cannula 2.0 03/05/17 12:00 83 03/05/17 11:40 Nasal Cannula 2.0 91 03/05/17 11:31 98.4 81 20 131/73 Nasal Cannula Height (Feet): 5 Height (Inches): 6.00 Weight (Pounds): 150 Objective General Appearance: alert, non in distress, Chronically Ill HEENT: no oral lessions, PERRL Neck: supple Respiratory: normal inspection, normal breath sounds, CTA x2 Cardiovascular: regular rate, rhythm, no edema Gastrointestinal: normal inspection, normal bowel sounds, non tender, soft, no guarding, no hernia Musculoskeletal: normal inspection, back normal, normal range of motion Neurologic: responsive, speech normal, motor weakness - left upper extremity Skin: normal inspection, normal color, no rash Microbiology Date/Time Source Procedure Growth Status 03/03/17 19:56 Blood Blood Culture - Preliminary NO GROWTH AFTER 24 HOURS Resulted 03/03/17 19:40 Blood Blood Culture - Preliminary NO GROWTH AFTER 24 HOURS Resulted 03/05/17 04:30 Urine,Clean Catch Urine Culture - Preliminary NO GROWTH AFTER 24 HOURS Resulted 03/03/17 19:56 Rectum VRE Culture - Final NO VANCOMYCIN RESISTANT ENTEROCOCCUS ... Complete Laboratory Tests Test 03/06/17 07:40 White Blood Count 7.3 K/UL (4.8-10.8) Red Blood Count 4.93 M/UL (4.20-5.40) Hemoglobin 14.9 G/DL (12.0-16.0) Hematocrit 46.9 % (37.0-47.0) Mean Corpuscular Volume 95 FL (80-99) Mean Corpuscular Hemoglobin 30.2 PG (27.0-31.0) Mean Corpuscular Hemoglobin Concent 31.7 G/DL (32.0-36.0) L Red Cell Distribution Width 13.1 % (11.6-14.8) Platelet Count 193 K/UL (150-450) Mean Platelet Volume 5.9 FL (6.5-10.1) L Neutrophils (%) (Auto) 70.5 % (45.0-75.0) Lymphocytes (%) (Auto) 16.1 % (20.0-45.0) L Monocytes (%) (Auto) 9.6 % (1.0-10.0) Eosinophils (%) (Auto) 2.8 % (0.0-3.0) Basophils (%) (Auto) 1.0 % (0.0-2.0) Erythrocyte Sedimentation Rate 19 MM/HR (0-30) Sodium Level 136 MMOL/L (136-145) Potassium Level 4.1 MMOL/L (3.5-5.1) Chloride Level 101 MMOL/L (98-107) Carbon Dioxide Level 32 MMOL/L (21-32) Anion Gap 4 (5-15) L Blood Urea Nitrogen 24 mg/dL (7-18) H Creatinine 0.6 MG/DL (0.55-1.30) Estimat Glomerular Filtration Rate mL/min (>60) Glucose Level 86 MG/DL (74-106) Calcium Level 9.2 MG/DL (8.5-10.1) Phosphorus Level 3.2 MG/DL (2.5-4.9) Magnesium Level 1.8 MG/DL (1.8-2.4) Total Bilirubin 0.6 MG/DL (0.2-1.0) Aspartate Amino Transf (AST/SGOT) 22 U/L (15-37) Alanine Aminotransferase (ALT/SGPT) 12 U/L (12-78) Alkaline Phosphatase 61 U/L (46-116) C-Reactive Protein, Quantitative 1.1 mg/dL (0.00-0.90) H Total Protein 6.9 G/DL (6.4-8.2) Albumin 3.3 G/DL (3.4-5.0) L Globulin 3.6 g/dL Albumin/Globulin Ratio 0.9 (1.0-2.7) L Current Medications Medications (Trade) Dose Ordered Sig/Freeman Route PRN Reason Start Time Stop Time Status Last Admin Dose Admin Acetaminophen (Tylenol) 650 mg Q4H PRN ORAL fever 03/05/17 18:30 04/02/17 22:29 Al Hydroxide/Mg Hydroxide (Mylanta II) 30 ml Q6H PRN ORAL dyspepsia 03/05/17 18:00 04/02/17 17:59 Albuterol/ Ipratropium (DuoNeb 0.5-3(2.5)mg/3ml) 3 ml Q4H PRN HHN Shortness of Breath 03/05/17 21:00 03/10/17 20:59 Ceftriaxone Sodium 1 gm/ Dextrose 55 ml @ 110 mls/hr Q24H IVPB 03/05/17 21:00 03/11/17 20:59 03/05/17 23:30 Dextrose (Dextrose 50%) STAT PRN IV Hypoglycemia 03/05/17 18:00 04/02/17 17:59 Heparin Sodium (Porcine) (Heparin 5000 units/ml) 5,000 units EVERY 12 HOURS SUBQ 03/05/17 21:00 04/03/17 08:59 03/06/17 09:05 Insulin Aspart (NovoLOG) BEFORE MEALS AND HS SUBQ 03/05/17 21:00 04/03/17 06:29 Nitroglycerin (Ntg) 0.4 mg Q5M PRN SL Prn Chest Pain 03/05/17 18:00 04/02/17 17:59 Nystatin (Nystop Powder) 1 applic THREE TIMES A DAY TOPIC 03/05/17 21:00 04/04/17 20:59 03/06/17 09:05 Ondansetron HCl (Zofran) 4 mg Q6H PRN IVP Nausea & Vomiting 03/05/17 18:00 04/04/17 17:59 Polyethylene Glycol (Miralax) 17 gm DAILYPRN PRN ORAL Constipation 03/05/17 18:00 04/02/17 17:59 Promethazine HCl/ Codeine (Phenergan with Codeine) 5 ml Q4H PRN ORAL For Cough 03/05/17 18:00 04/02/17 17:59 Temazepam (Restoril) 15 mg HSPRN PRN ORAL Insomnia 03/05/17 18:00 03/10/17 17:59 Amanda Elizondo M.D. Mar 06, 2017 10:38
[2017-03-06 12:43] VITALS: BP 130/74
--- NOTE | 2017-03-06 15:23 | Pulmonology Progress Note ---
Assessment/Plan Assessment/Plan ASSESSMENT possible sepsis bronchitis vs aspiration pneumonitis pyuria respiratory distress -resolved HTN COPD DM CVA with DEHY[employer]OG[employer] dementia dysphagia PLAN OF CARE MS floor abx ID follows blood cx preliminary negative urine cx negative, no UTI, just asymptomatic pyuria CXR no evidence of PNA bronchitis vs pneumonitis a/tussive prn O2 HHN prn BSSE with evidence of moderate dysphagia strict aspiration reflux precautions, diet as per ST recommendations ST follows with daily Rx BS management with SS of insulin BP stable , no need for anti HTN Venous Duplex BLE DVT prophylaxis DNR/DNI status case discussed and evaluated by supervising physician x Subjective Allergies: Coded Allergies: No Known Allergies (Unverified , 10/11/14) Subjective afebrile, no leucocytosis no signs of respiratory distress Objective Last 24 Hour Vital Signs Date Time Temp Pulse Resp B/P (MAP) Pulse Ox O2 Delivery O2 Flow Rate FiO2 03/06/17 12:43 97.2 87 19 130/74 94 Nasal Cannula 3.0 03/06/17 08:47 Nasal Cannula 2.0 28 03/06/17 08:47 94 Nasal Cannula 2.0 28 03/06/17 08:12 97.2 93 20 130/71 90 Room Air 03/06/17 04:15 97.1 89 20 143/82 96 Room Air 89 03/06/17 02:17 Nasal Cannula 2.0 28 03/06/17 02:17 96 Nasal Cannula 2.0 28 03/05/17 23:35 97.0 88 20 126/70 96 Room Air 88 03/05/17 19:20 96 Nasal Cannula 2.0 28 03/05/17 19:20 Nasal Cannula 2.0 28 03/05/17 19:20 97.1 102 20 104/70 98 Nasal Cannula 102 03/05/17 16:00 90 03/05/17 15:38 97.1 86 20 129/66 Nasal Cannula 2.0 Intake and Output 03/06/17 03/07/17 19:00 07:00 # Bowel Movements 1 General Appearance: no acute distress, other - chronically ill elderly female in NAD HEENT: normocephalic, atraumatic, anicteric, mucous membranes moist Respiratory/Chest: lungs clear, no respiratory distress, no accessory muscle use Cardiovascular: normal peripheral pulses, normal rate, regular rhythm, no JVD Abdomen: normal bowel sounds, no organomegaly Extremities: no edema, pedal pulses normal Neurologic/Psychiatric: abnormal gait, other - disoriented Musculoskeletal: atrophy - BLE Microbiology Date/Time Source Procedure Growth Status 03/03/17 19:56 Blood Blood Culture - Preliminary NO GROWTH AFTER 48 HOURS Resulted 03/03/17 19:40 Blood Blood Culture - Preliminary NO GROWTH AFTER 48 HOURS Resulted 03/03/17 19:56 Nasal Nares MRSA Culture - Final Staphylococcus Aureus - Mrsa Complete 03/05/17 04:30 Urine,Clean Catch Urine Culture - Preliminary NO GROWTH AFTER 24 HOURS Resulted 03/03/17 19:56 Rectum VRE Culture - Final NO VANCOMYCIN RESISTANT ENTEROCOCCUS ... Complete Laboratory Tests 03/06/17 07:40: White Blood Count 7.3, Red Blood Count 4.93, Hemoglobin 14.9, Hematocrit 46.9, Mean Corpuscular Volume 95, Mean Corpuscular Hemoglobin 30.2, Mean Corpuscular Hemoglobin Concent 31.7L, Red Cell Distribution Width 13.1, Platelet Count 193, Mean Platelet Volume 5.9L, Neutrophils (%) (Auto) 70.5, Lymphocytes (%) (Auto) 16.1L, Monocytes (%) (Auto) 9.6, Eosinophils (%) (Auto) 2.8, Basophils (%) (Auto ) 1.0, Erythrocyte Sedimentation Rate 19, Sodium Level 136, Potassium Level 4.1 , Chloride Level 101, Carbon Dioxide Level 32, Anion Gap 4L, Blood Urea Nitrogen 24H, Creatinine 0.6, Estimat Glomerular Filtration Rate , Glucose Level 86, Calcium Level 9.2, Phosphorus Level 3.2, Magnesium Level 1.8, Total Bilirubin 0.6, Aspartate Amino Transf (AST/SGOT) 22, Alanine Aminotransferase ( ALT/SGPT) 12, Alkaline Phosphatase 61, C-Reactive Protein, Quantitative 1.1H, Total Protein 6.9, Albumin 3.3L, Globulin 3.6, Albumin/Globulin Ratio 0.9L Current Medications Medications (Trade) Dose Ordered Sig/Freeman Route PRN Reason Start Time Stop Time Status Last Admin Dose Admin Acetaminophen (Tylenol) 650 mg Q4H PRN ORAL fever 03/05/17 18:30 04/02/17 22:29 Al Hydroxide/Mg Hydroxide (Mylanta II) 30 ml Q6H PRN ORAL dyspepsia 03/05/17 18:00 04/02/17 17:59 Albuterol/ Ipratropium (DuoNeb 0.5-3(2.5)mg/3ml) 3 ml Q4H PRN HHN Shortness of Breath 03/05/17 21:00 03/10/17 20:59 Ceftriaxone Sodium 1 gm/ Dextrose 55 ml @ 110 mls/hr Q24H IVPB 03/05/17 21:00 03/11/17 20:59 03/05/17 23:30 Dextrose (Dextrose 50%) STAT PRN IV Hypoglycemia 03/05/17 18:00 04/02/17 17:59 Heparin Sodium (Porcine) (Heparin 5000 units/ml) 5,000 units EVERY 12 HOURS SUBQ 03/05/17 21:00 04/03/17 08:59 03/06/17 09:05 Insulin Aspart (NovoLOG) BEFORE MEALS AND HS SUBQ 03/05/17 21:00 04/03/17 06:29 Nitroglycerin (Ntg) 0.4 mg Q5M PRN SL Prn Chest Pain 03/05/17 18:00 04/02/17 17:59 Nystatin (Nystop Powder) 1 applic THREE TIMES A DAY TOPIC 03/05/17 21:00 04/04/17 20:59 03/06/17 12:13 Ondansetron HCl (Zofran) 4 mg Q6H PRN IVP Nausea & Vomiting 03/05/17 18:00 04/04/17 17:59 Polyethylene Glycol (Miralax) 17 gm DAILYPRN PRN ORAL Constipation 03/05/17 18:00 04/02/17 17:59 Promethazine HCl/ Codeine (Phenergan with Codeine) 5 ml Q4H PRN ORAL For Cough 03/05/17 18:00 04/02/17 17:59 Temazepam (Restoril) 15 mg HSPRN PRN ORAL Insomnia 03/05/17 18:00 03/10/17 17:59 Lizzette Gonzalez NP ([facility]) Mar 06, 2017 15:23
[2017-03-06 16:32] VITALS: BP 110/69
[2017-03-06] MEDS ORDERED: NS 275ml ONE (16:38)
[2017-03-06] MEDS ORDERED: Tubing IV Secondary IV ONE (16:38)
[2017-03-06] MEDS ORDERED: Albuterol/Ipratropium 3ml neb HHN SCH ×2 (19:15→19:28)
[2017-03-06 21:00] VITALS: BP 132/72
[2017-03-06] MEDS: cefTRIAXone 1 GM in D5W 55 ML IVPB SCH (22:14)
[2017-03-07 04:15] VITALS: BP 142/70
[2017-03-07] MEDS: NovoLOG Insulin Flexpen SUBQ SCH ×4 (06:30→21:00)
[2017-03-07] MEDS: Albuterol/Ipratropium 3ml neb HHN SCH ×3 (07:44→20:06)
[2017-03-07 08:11] VITALS: BP 116/78
[2017-03-07] MEDS: Nystatin Powder 100,000 units/gm 15gm TOPIC SCH ×3 (08:19→17:58)
[2017-03-07] MEDS: Heparin 5000 units/ml inj SUBQ SCH ×2 (08:19→21:00)
[2017-03-07 11:36] VITALS: BP 133/86
--- NOTE | 2017-03-07 12:10 | Infectious Diseases Prog Note ---
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; Continue Rocephin Subjective ROS Limited/Unobtainable: Yes Respiratory: Reports: no symptoms Allergies: Coded Allergies: No Known Allergies (Unverified , 10/11/14) Objective Vital Signs Last 24 Hour Vital Signs Date Time Temp Pulse Resp B/P (MAP) Pulse Ox O2 Delivery O2 Flow Rate FiO2 03/07/17 11:36 97.3 87 18 133/86 91 Nasal Cannula 2.0 03/07/17 08:11 97.5 89 20 116/78 95 Room Air 03/07/17 07:52 87 21 99 Nasal Cannula 2.0 28 03/07/17 07:47 93 Room Air 03/07/17 07:47 Room Air 03/07/17 07:44 85 18 93 Room Air 03/07/17 04:15 97.6 89 18 142/70 96 Room Air 03/06/17 21:00 97.7 86 20 132/72 95 Nasal Cannula 2.0 03/06/17 19:55 85 20 97 Nasal Cannula 2.0 28 03/06/17 19:44 89 18 Nasal Cannula 2.0 28 03/06/17 19:44 Nasal Cannula 2.0 28 03/06/17 19:44 88 18 92 Room Air 03/06/17 19:44 92 Room Air 03/06/17 16:32 97.3 82 18 110/69 95 Room Air 03/06/17 12:43 97.2 87 19 130/74 94 Nasal Cannula 3.0 Height (Feet): 5 Height (Inches): 6.00 Weight (Pounds): 150 HEENT: mucous membranes moist Respiratory/Chest: lungs clear, other - O2 by cannula Cardiovascular: normal rate Abdomen: soft, non tender Extremities: no edema Neurologic/Psychiatric: alert, responsive Microbiology Date/Time Source Procedure Growth Status 03/06/17 16:00 Nasal Nares Influenza Types A,B Antigen (MODESTO) - Final Complete 03/05/17 04:30 Urine,Clean Catch Urine Culture - Final NO GROWTH AFTER 48 HOURS Complete Current Medications Medications (Trade) Dose Ordered Sig/Freeman Route PRN Reason Start Time Stop Time Status Last Admin Dose Admin Acetaminophen (Tylenol) 650 mg Q4H PRN ORAL fever 03/05/17 18:30 04/02/17 22:29 Al Hydroxide/Mg Hydroxide (Mylanta II) 30 ml Q6H PRN ORAL dyspepsia 03/05/17 18:00 04/02/17 17:59 Albuterol/ Ipratropium (DuoNeb 0.5-3(2.5)mg/3ml) 3 ml TIDRT HHN 03/07/17 07:00 03/11/17 19:27 03/07/17 07:44 Ceftriaxone Sodium 1 gm/ Dextrose 55 ml @ 110 mls/hr Q24H IVPB 03/05/17 21:00 03/11/17 20:59 03/06/17 22:14 Dextrose (Dextrose 50%) STAT PRN IV Hypoglycemia 03/05/17 18:00 04/02/17 17:59 Heparin Sodium (Porcine) (Heparin 5000 units/ml) 5,000 units EVERY 12 HOURS SUBQ 03/05/17 21:00 04/03/17 08:59 03/07/17 08:19 Insulin Aspart (NovoLOG) BEFORE MEALS AND HS SUBQ 03/05/17 21:00 04/03/17 06:29 Nitroglycerin (Ntg) 0.4 mg Q5M PRN SL Prn Chest Pain 03/05/17 18:00 04/02/17 17:59 Nystatin (Nystop Powder) 1 applic THREE TIMES A DAY TOPIC 03/05/17 21:00 04/04/17 20:59 03/07/17 08:19 Ondansetron HCl (Zofran) 4 mg Q6H PRN IVP Nausea & Vomiting 03/05/17 18:00 04/04/17 17:59 Polyethylene Glycol (Miralax) 17 gm DAILYPRN PRN ORAL Constipation 03/05/17 18:00 04/02/17 17:59 Promethazine HCl/ Codeine (Phenergan with Codeine) 5 ml Q4H PRN ORAL For Cough 03/05/17 18:00 04/02/17 17:59 Temazepam (Restoril) 15 mg HSPRN PRN ORAL Insomnia 03/05/17 18:00 03/10/17 17:59 HARINDER SCOTT Mar 07, 2017 12:10
--- NOTE | 2017-03-07 15:14 | Pulmonology Progress Note ---
Assessment/Plan Assessment/Plan ASSESSMENT possible sepsis bronchitis vs aspiration pneumonitis pyuria respiratory distress -resolved HTN COPD DM CVA with [employer] dementia dysphagia PLAN OF CARE MS floor abx ID follows blood cx preliminary negative urine cx negative, no UTI, just asymptomatic pyuria CXR no evidence of PNA bronchitis vs pneumonitis a/tussive prn O2 HHN prn BNP and CXR in am BSSE with evidence of moderate dysphagia strict aspiration reflux precautions, diet as per ST recommendations ST follows with daily Rx BS management with SS of insulin BP stable , no need for anti HTN Venous Duplex BLE DVT prophylaxis dc plan for am DNR/DNI status case discussed and evaluated by supervising physician x Subjective Allergies: Coded Allergies: No Known Allergies (Unverified , 10/11/14) Subjective afebrile, no leucocytosis no signs of respiratory distress Objective Last 24 Hour Vital Signs Date Time Temp Pulse Resp B/P (MAP) Pulse Ox O2 Delivery O2 Flow Rate FiO2 03/07/17 14:00 88 20 99 Nasal Cannula 2.0 28 03/07/17 13:52 84 18 94 Room Air 03/07/17 11:36 97.3 87 18 133/86 91 Nasal Cannula 2.0 03/07/17 08:11 97.5 89 20 116/78 95 Room Air 03/07/17 07:52 87 21 99 Nasal Cannula 2.0 03/07/17 07:47 93 Room Air 21 03/07/17 07:47 Room Air 21 03/07/17 07:44 85 18 93 Room Air 03/07/17 04:15 97.6 89 18 142/70 96 Room Air 03/06/17 21:00 97.7 86 20 132/72 95 Nasal Cannula 2.0 03/06/17 19:55 85 20 97 Nasal Cannula 2.0 28 03/06/17 19:44 89 18 Nasal Cannula 2.0 28 03/06/17 19:44 Nasal Cannula 2.0 28 03/06/17 19:44 88 18 92 Room Air 03/06/17 19:44 92 Room Air 03/06/17 16:32 97.3 82 18 110/69 95 Room Air Objective General Appearance: no acute distress, other - chronically ill elderly female in NAD HEENT: normocephalic, atraumatic, anicteric, mucous membranes moist Respiratory/Chest: lungs clear, no respiratory distress, no accessory muscle use Cardiovascular: normal peripheral pulses, normal rate, regular rhythm, no JVD Abdomen: normal bowel sounds, no organomegaly Extremities: no edema, pedal pulses normal Neurologic/Psychiatric: abnormal gait, other - disoriented Musculoskeletal: atrophy - BLE Microbiology Date/Time Source Procedure Growth Status 03/06/17 16:00 Nasal Nares Influenza Types A,B Antigen (MODESTO) - Final Complete 03/05/17 04:30 Urine,Clean Catch Urine Culture - Final NO GROWTH AFTER 48 HOURS Complete Current Medications Medications (Trade) Dose Ordered Sig/Freeman Route PRN Reason Start Time Stop Time Status Last Admin Dose Admin Acetaminophen (Tylenol) 650 mg Q4H PRN ORAL fever 03/05/17 18:30 04/02/17 22:29 Al Hydroxide/Mg Hydroxide (Mylanta II) 30 ml Q6H PRN ORAL dyspepsia 03/05/17 18:00 04/02/17 17:59 Albuterol/ Ipratropium (DuoNeb 0.5-3(2.5)mg/3ml) 3 ml TIDRT HHN 03/07/17 07:00 03/11/17 19:27 03/07/17 13:49 Ceftriaxone Sodium 1 gm/ Dextrose 55 ml @ 110 mls/hr Q24H IVPB 03/05/17 21:00 03/11/17 20:59 03/06/17 22:14 Dextrose (Dextrose 50%) STAT PRN IV Hypoglycemia 03/05/17 18:00 04/02/17 17:59 Heparin Sodium (Porcine) (Heparin 5000 units/ml) 5,000 units EVERY 12 HOURS SUBQ 03/05/17 21:00 04/03/17 08:59 03/07/17 08:19 Insulin Aspart (NovoLOG) BEFORE MEALS AND HS SUBQ 03/05/17 21:00 04/03/17 06:29 Nitroglycerin (Ntg) 0.4 mg Q5M PRN SL Prn Chest Pain 03/05/17 18:00 04/02/17 17:59 Nystatin (Nystop Powder) 1 applic THREE TIMES A DAY TOPIC 03/05/17 21:00 04/04/17 20:59 03/07/17 14:19 Ondansetron HCl (Zofran) 4 mg Q6H PRN IVP Nausea & Vomiting 03/05/17 18:00 04/04/17 17:59 Polyethylene Glycol (Miralax) 17 gm DAILYPRN PRN ORAL Constipation 03/05/17 18:00 04/02/17 17:59 Promethazine HCl/ Codeine (Phenergan with Codeine) 5 ml Q4H PRN ORAL For Cough 03/05/17 18:00 04/02/17 17:59 Temazepam (Restoril) 15 mg HSPRN PRN ORAL Insomnia 03/05/17 18:00 03/10/17 17:59 Carlos ([facility])Lizzette NP Mar 07, 2017 15:14
[2017-03-07 17:20] VITALS: BP 136/76
[2017-03-07 21:00] VITALS: BP 143/64
[2017-03-07] MEDS: cefTRIAXone 1 GM in D5W 55 ML IVPB SCH (22:18)
[2017-03-08] VITALS: BP 142/91
[2017-03-08 03:54] VITALS: BP 153/73
[2017-03-08] MEDS: NovoLOG Insulin Flexpen SUBQ SCH ×2 (06:30→11:30)
[2017-03-08] MEDS: Albuterol/Ipratropium 3ml neb HHN SCH ×2 (07:29→12:47)
[2017-03-08 07:35] LABS: BASOPHILS % (AUTO) 1.2 % (0.0-2.0); EOSINOPHILS % (AUTO) 3.8 % (0.0-3.0); LYMPHOCYTES % (AUTO) 22.2 % (20.0-45.0); MEAN CORPUSCULAR HEMOGLOBIN 30.7 PG (27.0-31.0); MEAN CORPUSCULAR HGB CONC 32.3 G/DL (32.0-36.0); MEAN CORPUSCULAR VOLUME 95 FL (80-99); MEAN PLATELET VOLUME 5.9 FL (6.5-10.1); MONOCYTES % (AUTO) 9.6 % (1.0-10.0); NEUTROPHILS % (AUTO) 63.3 % (45.0-75.0); PLATELET COUNT 199 K/UL (150-450); RED BLOOD COUNT 4.88 M/UL (4.20-5.40); RED CELL DISTRIBUTION WIDTH 13.1 % (11.6-14.8); WHITE BLOOD COUNT 6.2 K/UL (4.8-10.8)
[2017-03-08 07:53] LABS: ANION GAP 7 (5-15); CALCIUM 9.3 MG/DL (8.5-10.1); CARBON DIOXIDE 31 MMOL/L (21-32); CHLORIDE 104 MMOL/L (98-107); CREATININE 0.5 MG/DL (0.55-1.30); POTASSIUM 3.9 MMOL/L (3.5-5.1); SODIUM 142 MMOL/L (136-145)
[2017-03-08 08:52] VITALS: BP 140/81
[2017-03-08] MEDS: Nystatin Powder 100,000 units/gm 15gm TOPIC SCH ×2 (10:02→13:00)
[2017-03-08] MEDS: Heparin 5000 units/ml inj SUBQ SCH (10:02)
--- NOTE | 2017-03-08 10:49 | Diagnostic Imaging Report ---
Indication: SOB Technique: One view of the chest Comparison: 03/05/2017 Findings: There is retrocardiac atelectasis or scarring. Lungs and pleural space are otherwise clear. Heart size is upper limits of normal. Aorta is elongated tortuous and calcified. Left shoulder prosthesis is again demonstrated. Impression: No acute process. Findings as noted
[2017-03-08 13:06] VITALS: BP 145/92
--- NOTE | 2017-03-08 15:09 | Infectious Diseases Prog Note ---
Assessment/Plan Assessment/Plan Abx: IV Vancomcyin 03/03-03/04 IV Cefepime 03/04 IV Ceftriaxone 03/04- Assesment: SOB- no PNA on CXR -CXR 03/05: Stable appearance. No acute findings -CXR:. Mild interstitial prominence likely reflects senescent changes. Previously demonstrated retrocardiac consolidation is no longer evident. There is some atelectasis of the left lateral lung base. 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 Will continue to follow along with you. Discussed with RN. Subjective Allergies: Coded Allergies: No Known Allergies (Unverified , 10/11/14) Subjective afebrile at RA no leukocytosis ucx neg Bcx NTD Objective Vital Signs Last 24 Hour Vital Signs Date Time Temp Pulse Resp B/P (MAP) Pulse Ox O2 Delivery O2 Flow Rate FiO2 03/08/17 13:06 97.3 93 18 145/92 97 Room Air 03/08/17 12:58 85 20 99 Nasal Cannula 2.0 28 03/08/17 12:47 85 18 93 Nasal Cannula 2.0 28 03/08/17 08:52 97.0 95 20 140/81 98 Nasal Cannula 2.0 03/08/17 07:29 91 Nasal Cannula 03/08/17 07:29 Nasal Cannula 03/08/17 07:29 Nasal Cannula 3.0 32 03/08/17 07:29 80 Nasal Cannula 3.0 32 03/08/17 03:54 97.3 88 20 153/73 93 Nasal Cannula 5.0 03/08/17 00:00 97.9 86 20 142/91 90 Room Air 03/07/17 21:00 97.7 89 20 143/64 90 Room Air 03/07/17 20:09 Nasal Cannula 03/07/17 20:08 84 18 83 Nasal Cannula 3.0 32 03/07/17 20:04 Nasal Cannula 3.0 32 03/07/17 20:04 83 Nasal Cannula 3.0 32 03/07/17 17:20 97.5 87 18 136/76 91 Room Air Height (Feet): 5 Height (Inches): 6.00 Weight (Pounds): 150 Objective not done as patient already dischasrged Microbiology Date/Time Source Procedure Growth Status 03/06/17 16:00 Nasal Nares Influenza Types A,B Antigen (MODESTO) - Final Complete Laboratory Tests Test 03/08/17 05:45 White Blood Count 6.2 K/UL (4.8-10.8) Red Blood Count 4.88 M/UL (4.20-5.40) Hemoglobin 15.0 G/DL (12.0-16.0) Hematocrit 46.4 % (37.0-47.0) Mean Corpuscular Volume 95 FL (80-99) Mean Corpuscular Hemoglobin 30.7 PG (27.0-31.0) Mean Corpuscular Hemoglobin Concent 32.3 G/DL (32.0-36.0) Red Cell Distribution Width 13.1 % (11.6-14.8) Platelet Count 199 K/UL (150-450) Mean Platelet Volume 5.9 FL (6.5-10.1) L Neutrophils (%) (Auto) 63.3 % (45.0-75.0) Lymphocytes (%) (Auto) 22.2 % (20.0-45.0) Monocytes (%) (Auto) 9.6 % (1.0-10.0) Eosinophils (%) (Auto) 3.8 % (0.0-3.0) H Basophils (%) (Auto) 1.2 % (0.0-2.0) Sodium Level 142 MMOL/L (136-145) Potassium Level 3.9 MMOL/L (3.5-5.1) Chloride Level 104 MMOL/L (98-107) Carbon Dioxide Level 31 MMOL/L (21-32) Anion Gap 7 (5-15) Blood Urea Nitrogen 20 mg/dL (7-18) H Creatinine 0.5 MG/DL (0.55-1.30) L Estimat Glomerular Filtration Rate mL/min (>60) Glucose Level 85 MG/DL (74-106) Calcium Level 9.3 MG/DL (8.5-10.1) Pro-B-Type Natriuretic Peptide 1152 (0-125) H Current Medications Medications (Trade) Dose Ordered Sig/Freeman Route PRN Reason Start Time Stop Time Status Last Admin Dose Admin Acetaminophen (Tylenol) 650 mg Q4H PRN ORAL fever 03/05/17 18:30 04/02/17 22:29 03/08/17 10:00 Al Hydroxide/Mg Hydroxide (Mylanta II) 30 ml Q6H PRN ORAL dyspepsia 03/05/17 18:00 04/02/17 17:59 Albuterol/ Ipratropium (DuoNeb 0.5-3(2.5)mg/3ml) 3 ml TIDRT HHN 03/07/17 07:00 03/11/17 19:27 03/08/17 12:47 Ceftriaxone Sodium 1 gm/ Dextrose 55 ml @ 110 mls/hr Q24H IVPB 03/05/17 21:00 03/11/17 20:59 03/07/17 22:18 Dextrose (Dextrose 50%) STAT PRN IV Hypoglycemia 03/05/17 18:00 04/02/17 17:59 Heparin Sodium (Porcine) (Heparin 5000 units/ml) 5,000 units EVERY 12 HOURS SUBQ 03/05/17 21:00 04/03/17 08:59 03/08/17 10:02 Insulin Aspart (NovoLOG) BEFORE MEALS AND HS SUBQ 03/05/17 21:00 04/03/17 06:29 Nitroglycerin (Ntg) 0.4 mg Q5M PRN SL Prn Chest Pain 03/05/17 18:00 04/02/17 17:59 Nystatin (Nystop Powder) 1 applic THREE TIMES A DAY TOPIC 03/05/17 21:00 04/04/17 20:59 03/08/17 10:02 Ondansetron HCl (Zofran) 4 mg Q6H PRN IVP Nausea & Vomiting 03/05/17 18:00 04/04/17 17:59 Polyethylene Glycol (Miralax) 17 gm DAILYPRN PRN ORAL Constipation 03/05/17 18:00 04/02/17 17:59 Promethazine HCl/ Codeine (Phenergan with Codeine) 5 ml Q4H PRN ORAL For Cough 03/05/17 18:00 04/02/17 17:59 Temazepam (Restoril) 15 mg HSPRN PRN ORAL Insomnia 03/05/17 18:00 03/10/17 17:59 Amanda Elizondo M.D. Mar 08, 2017 15:09
--- NOTE | 2017-03-08 22:42 | Pulmonology Progress Note ---
Assessment/Plan Problems: (1) Respiratory distress (2) Dyspnea (3) UTI (lower urinary tract infection) (4) Sepsis Assessment/Plan improivng afebrile eating better becoming afebrile dc home with hospice Subjective ROS Limited/Unobtainable: No Constitutional: Reports: no symptoms HEENT: Repors: no symptoms Respiratory: Reports: no symptoms Allergies: Coded Allergies: No Known Allergies (Unverified , 10/11/14) Objective Last 24 Hour Vital Signs Date Time Temp Pulse Resp B/P (MAP) Pulse Ox O2 Delivery O2 Flow Rate FiO2 03/08/17 13:06 97.3 93 18 145/92 97 Room Air 03/08/17 12:58 85 20 99 Nasal Cannula 2.0 28 03/08/17 12:47 85 18 93 Nasal Cannula 2.0 28 03/08/17 08:52 97.0 95 20 140/81 98 Nasal Cannula 2.0 03/08/17 07:29 91 Nasal Cannula 03/08/17 07:29 Nasal Cannula 03/08/17 07:29 Nasal Cannula 3.0 32 03/08/17 07:29 80 Nasal Cannula 3.0 32 03/08/17 03:54 97.3 88 20 153/73 93 Nasal Cannula 5.0 03/08/17 00:00 97.9 86 20 142/91 90 Room Air Intake and Output 03/08/17 03/09/17 19:00 07:00 Intake Total 180 ml Output Total 1 ml Balance 179 ml Intake Oral 180 ml Output Urine Total 1 ml # Voids 1 # Bowel Movements 1 General Appearance: WD/WN HEENT: normocephalic, atraumatic Respiratory/Chest: chest wall non-tender, lungs clear, chest wall tender Breasts: no masses Cardiovascular: normal peripheral pulses Extremities: no cyanosis Neurologic/Psychiatric: no motor/sensory deficits Microbiology Date/Time Source Procedure Growth Status 03/06/17 16:00 Nasal Nares Influenza Types A,B Antigen (MODESTO) - Final Complete Laboratory Tests 03/08/17 05:45: White Blood Count 6.2, Red Blood Count 4.88, Hemoglobin 15.0, Hematocrit 46.4, Mean Corpuscular Volume 95, Mean Corpuscular Hemoglobin 30.7, Mean Corpuscular Hemoglobin Concent 32.3, Red Cell Distribution Width 13.1, Platelet Count 199, Mean Platelet Volume 5.9L, Neutrophils (%) (Auto) 63.3, Lymphocytes (%) (Auto) 22.2, Monocytes (%) (Auto) 9.6, Eosinophils (%) (Auto) 3.8H, Basophils (%) (Auto ) 1.2, Sodium Level 142, Potassium Level 3.9, Chloride Level 104, Carbon Dioxide Level 31, Anion Gap 7, Blood Urea Nitrogen 20H, Creatinine 0.5L, Estimat Glomerular Filtration Rate , Glucose Level 85, Calcium Level 9.3, Pro-B- Type Natriuretic Peptide 1152H DOMINIK CROW Mar 08, 2017 22:42
--- NOTE | 2017-03-10 12:16 | Discharge Summary ---
Discharge Summary Hospital Course Date of Admission Mar 03, 2017 at 22:42 Date of Discharge Mar 08, 2017 at 16:30 Admitting Diagnosis CHF EXACERBATION HPI Leonie Rascon is a 81 year old female who was admitted on Mar 03, 2017 at 22:42 for Congestive Heart Failure Exacerbation Hospital Course dc summary #[id number] Discharge Medications Continued Medications: Albuterol Sulfate* (Albuterol Sulfate Hhn*) 2.5 Mg/3 Ml Vial.neb 3 ML INH Q6H PRN for Shortness of Breath, #30 EA 0 Refills Pantoprazole Sodium (Protonix) 40 Mg Suspdr.pkt 40 MG PO DAILY, PKT Sennosides (Gabi-Josh) 8.6 Mg Tablet 8.6 MG PO QHS, TAB Discontinued Medications: Trimethoprim/Sulfamethoxazole 160/800* (Bactrim Ds Tablet*) 1 Each Tablet 1 TAB ORAL TWICE A DAY for 5 Days, TAB Unable to Obtain Medications (Unable To Obtain Meds) 1 Ea Ea Discharge Discharge Disposition Patient was discharged to Home with hospice services Discharge Diagnoses: Carlos (Rosa)Lizzette NP Mar 10, 2017 12:16
--- NOTE | 2017-03-10 23:37 | Diagnostic Imaging Report ---
APPROVED REPORT CPT Code: 93910 Present Symptoms Lower Extremity Pain: Bilateral Comments: Difficult study due to calcified arteries. BILATERAL: Imaging reveals a patent deep venous system bilaterally. There is no evidence of thrombus within the femoral, popliteal or tibial segments. The greater saphenous veins are also within normal limits. Doppler indicates normal spontaneous flow within these segments.
--- NOTE | 2017-03-11 06:30 | Discharge Summary 2 SIG ---
DATE OF ADMISSION: 03/03/2017 DATE OF DISCHARGE: 03/08/2017 REASON FOR ADMISSION: 81-year-old female with past medical history significant for cardiac arrest, COPD, diabetes, hypertension, CVA with left-sided weakness, dementia, bedbound, presented with an increased difficulty breathing and productive cough. She apparently received piror to presentation oral antibiotic without any improvement. She was desaturated and admitted for respiratory distress and dyspnea. HOSPITAL COURSE: The patient was admitted. The patient was on supplemental oxygen and pulmonary toilet. The patient was started on empiric antibiotics. Infectious Disease consult was requested. The patient was on aspiration precautions. Bedside swallow evaluation was requested. The patient was initially tachypneic with fever. No leukocytosis. Fever resolved. Initially low blood pressure, but improved with IV hydration. . Blood culture were negative. Urine culture was negative. No UTI per Infectious Disease, just asymptomatic pyuria. Chest x-ray revealed no evidence of pneumonia, likely bronchitis versus aspiration pneumonitis. The patient status post antibiotic for six days. Antibiotics were discontinued as per ID recommendation, since all cultures were negative and chest x-ray revealed no evidence of pneumonia. Antitussive provided as needed. Bedside swallow evaluation revealed evidence of moderate dysphagia. Patient was on strict aspiration/reflux precaution. Diet as per ST recommendation for quality of life with 1 to 1 feeding. Speech therapist followed with daily treatment. Blood sugar was managed with sliding scale of insulin and was stable. Blood pressure was stable, normotensive. No need for antihypertensive medication on this admission. Venous duplex of bilateral lower extremities was negative. DVT prophylaxis was provided. The patient was DNR/DNI status. The patient was discharged home with the hospice services per family wishes. FINAL DIAGNOSES: 1. Possible sepsis. 2. Bronchitis versus aspiration pneumonitis. 3. Pyuria. 4. Respiratory distress with dyspnea, resolved. 5. Hypertension. 6. Chronic obstructive pulmonary disease. 7. Diabetes mellitus. 8. Cerebrovascular accident with left-sided weakness. 9. Dementia. 10. Dysphagia. DISCHARGE MEDICATIONS: See medication reconciliation list. DISCHARGE INSTRUCTIONS: The patient was discharged home with hospice services. Belem Mejia M.D. Lizzette Gonzalez N.P. (vanchtein) DR: Jaylin JOB#: [id number] CC: [place]
== END 2017-03-08 16:30 | disposition hospice, home (50) | DRG 871 ==
LOC: EDBD 19:46 → EMR 20:00 → EDBEDREQ 22:14 → 2E 22:42 → EDBEDREQ 23:58 → 4W 03-05 17:23
DX: A41.9 Sepsis, unspecified organism (principal); J69.0 Pneumonitis due to inhalation of food and vomit; F03.90 Unspecified dementia, unspecified severity, without behavioral disturbance, psychotic disturbance, mood disturbance, and anxiety; N39.0 Urinary tract infection, site not specified; I69.354 Hemiplegia and hemiparesis following cerebral infarction affecting left non-dominant side; I50.9 Heart failure, unspecified; J40 Bronchitis, not specified as acute or chronic; Z86.74 Personal history of sudden cardiac arrest; Z66 Do not resuscitate; R13.10 Dysphagia, unspecified
CPT/HCPCS: 36415; 71010; 80048; 80053; 80069; 81003; 82962; 83605; 83735; 83880; 84100; 84484; 85025; 85651; 86140; 86710; 87040; 87081; 87086; 93005; 93970; 94640; 94664; 94760; 99285; J1815; J7620